=== PATIENT | female | born 1945 | race Caucasian/White ===

== ENCOUNTER → 2019-06-25 08:12 | Outpatient (CLI) | payer SELFPAY ==
[2019-06-27 15:59] LABS: HPV Reflexed? NOT INDICATED
== END ==
PROVIDERS: Visit Provider Obstetrics & Gynecology
DX: Z12.4 Encounter for screening for malignant neoplasm of cervix (principal)
CPT/HCPCS: 88175; G0145

== ENCOUNTER 2022-10-16 18:10 | Emergency (ER) | payer OTHER, SELFPAY ==
[2022-10-16 18:12] VITALS: BP 126/88; PULSE 98; RESP 14; TEMP 36.6; O2SAT 99; BMI 20.5
[2022-10-16 19:37] LABS: Mucous, Urine 0 SEEN /hpf (<or=2+)
[2022-10-16 19:38] LABS: Glucose, Dipstick Normal (Normal); Ketone-Dipstick Negative (Negative); Leukocyte Esterase-Dipstick 500 /ul (Negative); Nitrite-Dipstick Negative (Negative); Occult Blood-Urine 50 /ul (Negative); Protein-Dipstick 30 mg/dl (Negative); Specific Gravity, Urine 1.005 (1.002-1.030); Urine Bilirubin Dipstick Negative (Negative); Urine Urobilinogen Normal (Normal)
[2022-10-16 19:41] VITALS: BP 144/67; PULSE 92; RESP 18; TEMP 36.8; O2SAT 99
[2022-10-16 19:44] LABS: Absolute Lymphocyte Count 1.73 X10^3/uL (0.83-4.51); Absolute Neutrophil Count 6.3 X10^3/uL (2.0-7.7); Basophil# 0.03 X10^3/uL; Basophil% 0.3 % (0-1); Eosinophil# 0.06 X10^3/uL; Eosinophils% 0.7 % (0-5); Hematocrit 29.7 % (37-47); Hemoglobin 9.6 g/dL (12.0-15.0); Lymphocyte # 1.73 X10^3/ul (0.83-4.51); Lymphocyte % 19.2 % (19-41); Mean Corp Hgb Conc 32.3 g/dL (32-36); Mean Corpuscular Hgb 28.7 pg (27.0-32.0); Mean Corpuscular Volume 88.7 fL (81-99); Monocyte# 0.81 X10^3/uL; NRBC Flagged by Analyzer 0 % (0-5); Neutrophil % 69.7 % (47-70); POSITIVE COUNT YES; RBC Distribution Width CV 14.6 % (11.6-14.6); RBC Distribution Width SD 47.2 fl (35.1-43.9); Red Blood Count 3.35 M/mm3 (4.2-5.4)
[2022-10-16 19:51] LABS: Color, Urine Yellow (Yellow); Urine Clarity Sl Cloudy (Clear)
[2022-10-16 19:53] LABS: Bacteria 2+ /hpf (None Seen); Red Blood Cells-Urine 0-5 SEEN /hpf (0-5); Squamous Epithelial Cells - UA 0-5 SEEN /hpf (5-10); White Blood Cells 50-100 SEEN /hpf (0-5)
[2022-10-16 19:53] LABS: Differential Indicated SCAN CRITERIA MET
[2022-10-16 19:54] LABS: Platelet Count 929 K/mm3 (150-450)
[2022-10-16 20:04] LABS: ALB/GLOB Ratio 0.7 RATIO (0.9-2.4); AST(SGOT) 21 U/L (15-37); Alanine Aminotransfer ALT/SGPT 9 U/L (13-56); Albumin, Serum 3.1 g/dL (3.2-5.0); Alkaline Phosphatase 79 U/L (45-117); Anion Gap 8 (5-15); BUN 5 mg/dL (7-18); Chloride 93 mmol/L (98-107); Creatinine, Serum 0.71 mg/dL (0.55-1.02); EST Glomerular Filtration Rate 85 mL/min (>60); Est Glom Filt Rate - Afr Amer 103 mL/min (>60); Estimated Creatinine Clearance 34.91 ml/min; Globulin 4.2 g/dL (2.2-4.2); Glucose 107 mg/dL (74-106); Lipase 55 U/L (73-393); Potassium 4.5 mmol/L (3.5-5.1); Protein, Total 7.3 g/dL (6.4-8.2); Sodium Level 128 mmol/L (136-145)
[2022-10-16 20:11] LABS: Differential Comment SCANNED
--- NOTE | 2022-10-16 20:13 | CT_ITS ---
INDICATION: llq ab pain EXAMINATION: CT ABDOMEN AND PELVIS WITH CONTRAST - CT Abdomen And Pelvis W/ Contrast Injection TECHNIQUE: Helically acquired images were obtained of the abdomen and pelvis following IV contrast. A radiation dose optimization technique was used for this scan. IV Contrast dosage and agent: 95 mL [id number] Oral contrast: None. COMPARISON: None. FINDINGS: LOWER CHEST: Lung bases are clear. No cardiomegaly or pericardial effusion. LIVER: Homogeneous. No focal mass. Maylin lobe. GALLBLADDER AND BILIARY TREE: No calcified gallstones. No gallbladder distension or wall edema. No intra- or extrahepatic biliary ductal dilation. PANCREAS: No focal cystic or solid mass. SPLEEN: Normal size without focal cystic or solid mass. ADRENAL GLANDS: No nodules. KIDNEYS AND URETERS: Mild right hydronephrosis. Severe left hydronephrosis with delayed nephrogram and delayed contrast excretion. Left renal enhancement. Soft tissue thickening in the proximal left ureter. PERITONEUM: No ascites or free air. No other fluid collection. BOWEL: No evidence of acute appendicitis. No stomach or bowel distension. No focal inflammatory change. LYMPH NODES: 4.2 x 3.2 x 2.0 cm left perirenal lymph node. Other enlarged periaortic lymph nodes. VESSELS: Aorta is non-dilated. There is enlargement of both gonadal veins and the uterine vessels. URINARY BLADDER: Unremarkable. REPRODUCTIVE ORGANS: No pelvic masses. ABDOMINAL WALL: No discrete abdominal or pelvic wall hernia. BONES: Mild thoracolumbar degenerative change. CT/Abdomen/Pelvis W IV Cont ONLY IMPRESSION: 1. 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 Local lymphadenopathy is suspicious for metastases. 2. Engorged bilateral gonadal veins. Electronically Signed: Robbin Mccracken MD at 21:05 EST ,
--- NOTE | 2022-10-16 20:13 | EDS_ITS ---
HPI HPI - GI History of Present Illness Chief Complaint: Flank Pain Narrative Narrative: 77-year-old Jac female presenting with left flank pain which has had for a few weeks. He states that she saw her primary care Tasha Han and had a CT performed which they are not sure of the exact results. They state that there was some kind of blockage in the kidney on the left as well as some constipation. Patient states that the pain is currently 5/5. Patient states the pain is constant. Patient still continues to admit to constipation. No fevers, chills, nausea, vomiting. No history of kidney stones. They stated they were referred to Dr. Bowens in stable follow-up with her on the 17 of this month. They state that due to the continued pain they tried to call her office today and were referred to the emergency room. [facility] Medical History Urinary tract infection Home Medications NK 10/16/22 [History Last Taken Unknown] Allergy/AdvReac Type Severity Reaction Status Date / Time No Known Allergies Allergy Verified 10/16/22 19:20 Social History Smoking Status: Never smoker ROS ROS ED Constitutional Constitutional ED: Denies chills, fever(s) or sweats Eyes Eyes: Denies blurry vision or change in vision ENT ENT ED: Denies ear pain or sore throat Cardiovascular Cardiovascular: Denies chest pain, palpitations or racing heartbeat Respiratory/Chest Respiratory/Chest: Denies cough, dyspnea or sputum Gastrointestinal Gastrointestinal: Reports abdominal pain and constipation; Denies diarrhea Genitourinary Genitourinary ED: Denies dysuria, hematuria or urinary frequency Musculoskeletal Musculoskeletal: Denies arthralgias, myalgias or neck pain Integumentary Denies abscess, Abrasions or rash Neurologic Neurologic: Denies headache(s), paresthesias or weakness Psychiatric Psychiatric: Denies anxiety, depression, suicidal ideation or suicidal thoughts Endocrine Endocrinology: Denies polydipsia or polyuria EXAM Physical Exam Const Vital Signs: 10/16/22 18:12 10/16/22 19:22 10/16/22 19:41 Temperature 98 F 98.2 F Temperature Source Temporal Oral Pulse Rate 98 92 Respiratory Rate 14 18 Respiratory Effort Normal Non-Labored Respiratory Pattern Normal Blood Pressure 126/88 H 144/67 H Blood Pressure Mean 100 92 Pulse Ox 99 99 Oxygen Delivery Method Room Air Room Air 10/16/22 19:41 10/16/22 20:22 10/16/22 21:02 Temperature 98.2 F 98.0 F Temperature Source Oral Oral Pulse Rate 92 86 91 Respiratory Rate 18 17 17 Respiratory Effort Respiratory Pattern Blood Pressure 144/67 H 129/67 H 125/60 H Blood Pressure Mean 92 87 81 Pulse Ox 99 98 95 Oxygen Delivery Method Room Air Room Air Room Air 10/16/22 21:06 10/16/22 22:02 10/17/22 00:00 Temperature 98.0 F 97.8 F Temperature Source Oral Oral Pulse Rate 94 90 86 Respiratory Rate 18 18 16 Respiratory Effort Respiratory Pattern Blood Pressure 125/60 H 126/65 H 119/61 Blood Pressure Mean 81 85 80 Pulse Ox 99 98 99 Oxygen Delivery Method Room Air Room Air 10/17/22 00:00 Temperature 97.8 F Temperature Source Temporal Pulse Rate 86 Respiratory Rate 16 Respiratory Effort Respiratory Pattern Blood Pressure 119/61 Blood Pressure Mean 80 Pulse Ox 99 Oxygen Delivery Method Room Air Positive well nourished General Appearance ED: NAD; Negative for pallor HEENT Reports TM's clear atraumatic Tympanic Membrane ED: Yes TM's clear Eyes PERRL and EOMs intact bilaterally General Eye ED: Negative for pale conjunctiva or scleral icterus Resp normal respiratory effort and clear to auscultation bilaterally Auscultation: Negative for rales, rhonchi or wheezes Cardio regular rate and regular rhythm GI non-tender and non-distended Back/Spine General Back: CVA tenderness left Neuro CN's II-XII intact bilaterally Sensorium / Orientation: alert Motor Exam: strength 5/5 throughout Psych mental status grossly normal Skin no wounds General Skin Exam: Negative for jaundice or pallor MDM MDM MDM Narrative Medical decision making narrative: Patient seen evaluated for left-sided abdominal pain and flank pain. It does appear to be low. She does have some CVA tenderness as well. Differential includes but is not limited to pyelonephritis, UTI, kidney stone, urinary outlet obstruction diverticulitis, colitis, bowel perforation. CBC was obtained to test white blood cell count, hemoglobin, hematocrit, platelet count, differential. CBC shows a normal white blood cell count 9.0. Hemoglobin is 9.6. I do not have any comparison in our system. She is denying any black or bloody stools. She denies hematuria. Patient does have a platelet count of 929. She is not aware of this. CMP obtained to assess for liver function, renal function, electrolytes, glucose, anion gap. Liver function appears normal. Electrolytes appear normal with exception of a sodium of 128 and a chloride of 93. Renal function is maintained with a GFR of 85 and a creatinine of 0.71. Urinalysis consistent with urinary tract infection. Since patient is having significant left flank pain I did obtain a CT of the abdomen pelvis with IV contrast. 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 Local lymphadenopathy is suspicious for metastases engorged bilateral gonadal veins. Patient was medicated with morphine and Zofran. We do not have urology on-call today. I did speak with [facility] transfer line given the patient's diagnosis and severe hydronephrosis and pain. This is a new finding of cancer as well. I was able to pull up her CT from earlier this week and there was no finding of cancer but there was a finding of obstruction. Patient will need urology and we do not have any on- call. Discussed this with the transfer line and they state that they may be able to get a bed for her in 1 to 2 days. This was discussed with the patient and the family. Patient was given a gram of Rocephin. Urine culture was sent. Patient will be signed out to incoming ED physician for monitoring until transfer can be obtained. Impression: 1. Left flank pain 2. Pyelonephritis 3. Likely urothelial cancer 4. Left ureteral outlet obstruction Lab Data Attestation: I reviewed the patient's lab results. Labs: Laboratory Results - last 24 hr 10/16/22 10/16/22 10/16/22 19:30 19:39 19:39 WBC 9.0 RBC 3.35 L Hgb 9.6 L Hct 29.7 L MCV 88.7 MCH 28.7 MCHC 32.3 RDW Std Deviation 47.2 H RDW Coeff of Piyush 14.6 Plt Count 929 H* MPV 8.0 Immature Gran % (Auto) 1.100 H Neut % (Auto) 69.7 Lymph % (Auto) 19.2 [place] % (Auto) 9.0 Eos % (Auto) 0.7 Baso % (Auto) 0.3 Absolute Neuts (auto) 6.3 Absolute Lymphs (auto) 1.73 Nucleated RBC % 0 Differential Comment SCANNED Diff Path Review May foll Sodium 128 L Potassium 4.5 Chloride 93 L Carbon Dioxide 27.0 Anion Gap 8 BUN 5 L Creatinine 0.71 Estim Creat Clear Calc 34.91 Est GFR (MDRD) Af Amer 103 Est GFR (MDRD) Non-Af 85 BUN/Creatinine Ratio 7.0 L Glucose 107 H Calcium 9.0 Total Bilirubin 0.50 AST 21 ALT 9 L Alkaline Phosphatase 79 Total Protein 7.3 Albumin 3.1 L Globulin 4.2 Albumin/Globulin Ratio 0.7 L Lipase 55 L Urine Color Yellow Urine Clarity Sl Cloudy Urine pH 7.0 Ur Specific [place] 1.005 Urine Protein 30 H Urine Glucose (UA) Normal Urine Ketones Negative Urine Occult Blood 50 H Urine Nitrite Negative Urine Bilirubin Negative Urine Urobilinogen Normal Ur Leukocyte Esterase 500 H Urine RBC 0-5 SEEN Urine WBC 50-100 SEEN Ur Squamous Epith Cells 0-5 SEEN Urine Bacteria 2+ Urine Mucus 0 SEEN Radiography Diagnostic Testing: Clinical Impression(s) from Imaging Studies Abdomen/Pelvis CT 10/16/22 20:13 IMPRESSION: 1. 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 Local lymphadenopathy is suspicious for metastases. 2. Engorged bilateral gonadal veins. Electronically Signed: Robbin Mccracken MD at 21:05 EST , Discharge Plan Triage Chief Complaint: Flank Pain ED Provider: Darnell Clements Dx/Rx/DC Orders Prescriptions: No Action NK Primary Care Provider: Tasha Han Referrals: Tasha Han, HARRIET [Primary Care Provider] -
[2022-10-16 20:22] VITALS: BP 129/67; PULSE 86; RESP 17; TEMP 36.7; O2SAT 98
[2022-10-16 21:02] VITALS: BP 125/60; PULSE 91; RESP 17; O2SAT 95
[2022-10-16 21:06] VITALS: BP 125/60; PULSE 94; RESP 18; TEMP 36.7; O2SAT 99
[2022-10-16 22:02] VITALS: BP 126/65; PULSE 90; RESP 18; TEMP 36.6; O2SAT 98
[2022-10-16] MEDS: Ceftriaxone 1 GM/50 ML BAG IV (22:07)
[2022-10-17] VITALS: BP 119/61; PULSE 86; RESP 16; TEMP 36.6; O2SAT 99
[2022-10-17 01:00] VITALS: BP 119/61; PULSE 78; RESP 16; TEMP 36.2; O2SAT 96
[2022-10-17 02:00] VITALS: BP 99/56; PULSE 78; RESP 14; TEMP 36.6; O2SAT 96
[2022-10-17 04:00] VITALS: BP 111/55; PULSE 81; RESP 18; TEMP 36.3; O2SAT 96
[2022-10-17 06:00] VITALS: BP 121/54; PULSE 83; RESP 18; TEMP 36.3; O2SAT 97
--- NOTE | 2022-10-17 06:30 | ED.RN ---
[facility] called for report, spoke with Pooja CUELLAR. Updated Pooja with ETA for patients arrival.
[2022-10-17 12:11] LABS: Pathologist Review Reviewed
== END 2022-10-17 07:10 | disposition short-term general hospital (02) ==
PROVIDERS: Emergency Provider Student in an Organized Health Care Education/Training Program; PCP Physician Assistant; Visit Provider Student in an Organized Health Care Education/Training Program
DX: N13.6 Pyonephrosis (principal)
CPT/HCPCS: 74177; 80053; 81001; 83690; 85025; 87077; 87086; 87088; 87186; 96365; 99285; J7050; Q9967; A4216; J2405